=== PATIENT | male | born 1970 | race Caucasian/White ===

== ENCOUNTER 2016-10-06 10:53 | Inpatient (IN) | payer BC ==
[~2016-10-06] VITALS: Ht 172.7 cm; Wt 216.1 kg
[~2016-10-06 10:53] MED LIST changes: -ALBU18002 INH; -CRD200 PO; -IBUP-1050 PO; -LPR100 PO; -NAPR1TAB9 PO; -POTA10CA28 PO; -PRD75 PO; -SPRIN INH
[2016-10-06] MEDS ORDERED: DILTIAZEM BOLUS / DRIP IV STA ×2 (11:17→18:34)
--- NOTE | 2016-10-06 11:22 | EMERGENCY ROOM VISIT NOTE ---
History Report prepared by Harley: Shahab Laguna Under the Supervision of: Dr. Rosio Tran D.O. First contact with patient: 10:56 History of Present Illness The patient is a 46 year old male who presents to the Emergency Room with persistent irregular heart rhythm that was detected earlier today. The patient was scheduled to have a colonoscopy today. In pre-op they expressed concern that the patient appeared diaphoretic and short of breath, however the patient states that this is because the room was hot and he is a "big glen." On the special agent it was noted that the patient was in an irregular heart rhythm, and he was referred to the ED. The patient has not felt tachycardic or noticed any fluttering. He does not have history of cardiac dysrhythmia. The patient denies lightheadedness, dizziness, chest pain, recent cough or cold symptoms, or other complaints. The patient felt fine overnight when he was preparing for the procedure. The patient intermittently experiences water retention in his legs and takes a diuretic as needed. The patient was having the colonoscopy due to fluctuations in his bowel habits. He denies any history of diabetes, hypertension, heart disease, or thyroid disease. He had a negative echocardiogram many years ago. He does have a family history of heart disease. He did not have a cardiology consultation prior to scheduling his colonoscopy. He denies having any sick contacts, medication changes, or recent travel. The patient smoked his whole life but quit a few months ago. Source of History: patient Onset: earlier today Position: other (heart ) Quality: other (irregular rhythm) Timing: other (persistent) Associated Symptoms: No cough, No chest pain Review of Systems See HPI for pertinent positives & negatives. A total of 10 systems reviewed and were otherwise negative. Past Medical & Surgical Medical Problems: (1) Acute diverticulitis (2) Atrial fibrillation with RVR (3) Depression (4) GERD (gastroesophageal reflux disease) (5) Morbid obesity due to excess calories (6) ZORA (obstructive sleep apnea) Social History Problems: (1) Former smoker Family History Patient reports no known family medical history. Social History Smoking Status: Former Smoker Alcohol Use: occasionally Drug Use: none Current/Historical Medications Scheduled Budesonide/Formoterol Fumarate (Symbicort 160/4.5 Inhaler), 2 PUFFS INH BID Glucosamine-Chondroitin (Osteo Bi-Flex Regular Str), 1 TAB PO QAM Omeprazole (Prilosec), 20 MG PO QAM Tiotropium Hale (Spiriva Handihaler), 1 CAP INH QAM Scheduled PRN Albuterol Sulfate (Proair Respiclick), 2 PUFFS INH QID PRN for Shortness of Breath Furosemide (Lasix), 80 MG PO BID PRN for edema Naproxen (Aleve), 220 MG PO Q4 PRN for Headache Potassium Chloride (Micro-K Ext Rel), 20 MEQ PO BID PRN for TAKE WITH LASIX Allergies Coded Allergies: No Known Allergies (Unverified , 10/06/16) Physical Exam Vital Signs Date Time Temp Pulse Resp B/P (MAP) Pulse Ox O2 Delivery O2 Flow Rate FiO2 10/06/16 18:20 135 20 142/111 10/06/16 17:01 128 20 174/124 91 Nasal Cannula 2.0 10/06/16 15:52 129 20 168/102 95 Room Air 10/06/16 15:24 118 22 141/122 92 Room Air 10/06/16 14:26 118 20 181/130 91 Nasal Cannula 2.0 10/06/16 13:53 108 10/06/16 13:15 123 18 158/115 93 Nasal Cannula 2.0 10/06/16 12:09 121 18 168/113 93 Nasal Cannula 2.0 10/06/16 11:38 133 20 160/111 93 Nasal Cannula 2.0 10/06/16 11:07 134 10/06/16 11:04 89 Room Air 10/06/16 11:04 37.1 134 20 175/102 93 Nasal Cannula 2.0 10/06/16 11:00 93 Nasal Cannula 2.0 Physical Exam GENERAL: Obese, alert, well appearing, well nourished, no distress, non-toxic EYE EXAM: normal conjunctiva, PERRL and EOM's grossly intact OROPHARYNX: no exudate, no erythema, lips, buccal mucosa, and tongue normal and mucous membranes are mildly dry NECK: supple, no nuchal rigidity, no adenopathy, non-tender LUNGS: Clear to auscultation. Normal chest wall mechanics HEART: Tachycardic but regular rhythm, no murmurs, S1 normal and S2 normal ABDOMEN: abdomen soft, non-tender, normo-active bowel sounds, no masses, no rebound or guarding. BACK: Back is symmetrical on inspection and there is no deformity, no midline tenderness, no CVA tenderness. SKIN: no rashes and no bruising UPPER EXTREMITIES: upper extremities are grossly normal. LOWER EXTREMITIES: Chronic venous stasis changes bilaterally with 1+ edema bilaterally. NEURO EXAM: Normal sensorium, cranial nerves II-XII grossly intact, normal speech, no gross weakness of arms, no gross weakness of legs. No drift. Gross sensation intact. Medical Decision & Procedures ER Provider Diagnostic Interpretation: Radiology results have been interpreted by the radiologist and reviewed by me. CHEST ONE VIEW PORTABLE HISTORY: dysrhythmia, sob COMPARISON: Chest 03/02/2015. FINDINGS: Moderate cardiomegaly has progressed. Diffuse interstitial and vascular thickening has also increased. This consistent with pulmonary edema. Suspect trace bilateral pleural effusions. No pneumothorax. Increased density within the right medial lung base. IMPRESSION: 1. Progression of the moderate cardiomegaly and pulmonary edema. 2. Right medial lung base opacity. This could be due to the pulmonary edema or developing pneumonia. Recommend follow-up to ensure resolution. Electronically signed by: Johny Chisholm M.D. 10/06/2016 11:40 AM Dictated Date/Time: 10/06/2016 11:[address] ANGIOGRAM OF THE CHEST CLINICAL HISTORY: Atypical chest pain COMPARISON STUDY: Chest x-ray dated 10-21 TECHNIQUE: Following the IV administration of 117 mL of Optiray-320, CT angiogram of the thorax was performed from the thoracic inlet to the lung bases utilizing the pulmonary embolus protocol. Images are reviewed in the axial, sagittal, and coronal planes. IV contrast was administered without complication. MIP imaging was performed. CT DOSE: 912.53 mGy.cm FINDINGS: There are mildly enlarged right paratracheal lymph nodes measuring up to 16 mm in diameter. There is a mildly enlarged AP window lymph node. There is no pathologic axillary lymphadenopathy. Hilar lymph nodes are the upper limits of normal in size. There was no evidence of thoracic aortic dilatation. Pulmonary arterial opacification is somewhat limited in part due to the patient's large body habitus. No central emboli are visualized. No pleural effusions are visualized. There is suspected mild septal edema. There is a small focal airspace opacity within the right lower lobe. This is likely either atelectatic or inflammatory. Radiographic follow-up is recommended. The heart is enlarged IMPRESSION: 1. No CT evidence of acute pulmonary embolism 2. Cardiomegaly and mild septal edema 3. Small focal right lower lobe airspace opacity, likely on an atelectatic or inflammatory. Radiographic follow-up is recommended 4. Mild mediastinal adenopathy Electronically signed by: Jordy Aguilar M.D. 10/06/2016 2:38 PM Dictated Date/Time: 10/06/2016 2:33 PM Laboratory Results Test 10/06/16 11:45 Immature Granulocyte % (Auto) 0.1 % White Blood Count 8.02 K/uL (4.8-10.8) Red Blood Count 5.22 M/uL (4.7-6.1) Hemoglobin 14.2 g/dL (14.0-18.0) Hematocrit 46.2 % (42-52) Mean Corpuscular Volume 88.5 fL (80-100) Mean Corpuscular Hemoglobin 27.2 pg (25-34) Mean Corpuscular Hemoglobin Concent 30.7 g/dl (32-36) Platelet Count 282 K/uL (130-400) Mean Platelet Volume 9.8 fL (7.4-10.4) Neutrophils (%) (Auto) 72.8 % Lymphocytes (%) (Auto) 17.0 % Monocytes (%) (Auto) 9.5 % Eosinophils (%) (Auto) 0.4 % Basophils (%) (Auto) 0.2 % Neutrophils # (Auto) 5.84 K/uL (1.4-6.5) Lymphocytes # (Auto) 1.36 K/uL (1.2-3.4) Monocytes # (Auto) 0.76 K/uL (0.11-0.59) Eosinophils # (Auto) 0.03 K/uL (0-0.5) Basophils # (Auto) 0.02 K/uL (0-0.2) Immature Granulocyte # (Auto) 0.01 K/uL (0.00-0.02) Prothrombin Time 12.3 SECONDS (9.0-12.0) Prothromb Time International Ratio 1.1 (0.9-1.1) D-Dimer 970 ug/L FEU (0-500) Total Bilirubin 0.5 mg/dl (0.2-1) Aspartate Amino Transf (AST/SGOT) 19 U/L (15-37) Alanine Aminotransferase (ALT/SGPT) 25 U/L (12-78) Alkaline Phosphatase 67 U/L (45-117) Pro-B-Type Natriuretic Peptide 743 pg/ml (0-450) Total Protein 7.9 gm/dl (6.4-8.2) Albumin 3.1 gm/dl (3.4-5.0) Globulin 4.8 gm/dl (2.5-4.0) Albumin/Globulin Ratio 0.6 (0.9-2) Thyroid Stimulating Hormone (TSH) 1.710 uIu/ml (0.300-4.500) Laboratory results per my review. Medications Administered Medications (Trade) Dose Ordered Sig/Katty Route Start Time Stop Time Status Last Admin Dose Admin Diltiazem HCl (Cardizem Bolus / Drip) 1 ea NOW STAT IV 10/06/16 11:17 10/06/16 12:46 DC 10/06/16 12:13 1 EA Diltiazem HCl (Cardizem Inj) 10 mg TODAY@1130 IV 10/06/16 11:30 10/06/16 12:46 DC 10/06/16 11:36 10 MG Diltiazem HCl 125 mg/Dextrose 125 ml @ 5 mls/hr Q24H PRN IV 10/06/16 11:30 10/06/16 12:46 DC 10/06/16 12:21 5 MLS/HR Sodium Chloride 500 ml @ 999 mls/hr Q31M STAT IV 10/06/16 15:44 10/06/16 16:14 DC 10/06/16 15:50 999 MLS/HR Heparin Sodium/ Dextrose 1 ea NOW STAT N/A 10/06/16 17:18 10/06/16 17:19 DC 10/06/16 18:13 1 EA Heparin Sodium/ Dextrose (Heparin 25,000 Unit/500ml D5W) 25,000 unit STK-MED ONCE .ROUTE 10/06/16 18:09 10/06/16 18:10 DC 10/06/16 18:15 25,000 UNIT ECG Indication: tachycardia Rate (beats per minute): 134 Rhythm: sinus tachycardia Findings: RBBB (appearance of), no acute ischemic change, prolonged QT, other ( normal axis, normal QRS) Change: Repeat EKG: sinus rhythm at 115, normal axis, normal QRS, normal QTC. Third EKG: Atrial fibrillation at a rate of 124, normal axis, appearance of incomplete RBBB, normal QRS. ED Course 1102: The patient was evaluated in room C4. A complete history and physical exam was performed. 1117: Cardizem Bolus / Drip 1 ea IV. 1130: Cardizem 10 mg IV. 1250: The patient still feels okay. I updated him and told him about the CT. 1200: The patient's heart rate is slower. He remains asymptomatic. 1510: Updated the patient. 1544: NSS 500 ml @ 999 mls/hr. 1640: The patient is still tachycardic but remains asymptomatic. Third EKG is being ordered. 1714: Discussed the case with Dr. Tyson, [facility] Hospitalist. The patient will be evaluated. 1718: Heparin Sodium / Dextrose 1 ea IV. Medical Decision Differential diagnosis: Etiologies such as premature contractions, electrolyte abnormality, cardiac dysrhythmia, thyroid dysfunction, pulmonary embolism, infection, gastrointestinal, as well as others were entertained. Blood pressure screening: Patient was found to have an elevated blood pressure and was referred to their primary doctor for recheck and further treatment. Medication Reconciliation: I attest that I have personally reviewed the patient' s current medication list. Patient's asymptomatic and tachycardia found incidentally the patient being prepared for colonoscopy this been scheduled as an outpatient. Patient brought to emergency room for evaluation. Initial telemetry rhythm appeared A flutter and Cardizem started, however en route close review of patient's twelve-lead EKG appeared to be sinus tachycardia. Patient given small amounts of IV fluids , this patient did not appear severely dehydrated and has had issues with volume overload and swelling in the past per his report. Patient with multiple repeat evaluations here and frequent rechecks. Tachycardia did not improve with IV hydration, patient not have any fevers, and denied any pain or symptoms to otherwise explain the tachycardia. Repeat EKGs were also done. Third EKG that appeared more consistent with atrial fibrillation and Cardizem restarted, patient started on heparin drip pending additional evaluation by medicine and cardiology. Case discussed with hospitalist for admission. No evidence of PE, dissection, or occult infection. No evidence of electrolyte abnormalities or renal failure, no evidence of acute thyroid dysfunction or thyroid storm. Patient remained asymptomatic at time of admission but was aware of all results and need for additional evaluation. Consults Time Called: 1700 Consulting Physician[facility] Returned Call: 1714 The patient will be evaluated. Impression Primary Impression: Atrial fibrillation Additional Impressions: Morbid obesity due to excess calories Cardiac arrhythmia Critical Care I have personally spent 45 minutes of critical care time in the direct management of this patient. This includes bedside care, interpretation of diagnostic studies, and testing, discussion with consultants, patient, and family members, and other required patient management activities. This 45 minutes is in excess of all separately billable procedures. Scribe Attestation The scribe's documentation has been prepared under my direction and personally reviewed by me in its entirety. I confirm that the note above accurately reflects all work, treatment, procedures, and medical decision making performed by me. Departure Information Dispostion Being Evaluated By Hospitalist Referrals Adam Crowder M.D.([facility]) (PCP) Problem Qualifiers Primary Impression: Atrial fibrillation Atrial fibrillation type: persistent Qualified Codes: I48.1 - Persistent atrial fibrillation Additional Impressions: Cardiac arrhythmia Arrhythmia type: atrial fibrillation Atrial fibrillation type: persistent Qualified Codes: I48.1 - Persistent atrial fibrillation
[2016-10-06] MEDS ORDERED: DILTIAZEM HCL 5 MG/ML 5 ML VIAL IV SCH (11:30)
[2016-10-06] MEDS ORDERED: DILTIAZEM HCL INJ 125 MG in DEXTROSE 5% 100ML IV PRN (11:30)
--- NOTE | 2016-10-06 11:42 | DIAGNOSTIC IMAGING REPORT ---
CHEST ONE VIEW PORTABLE HISTORY: dysrhythmia, sob COMPARISON: Chest 03/02/2015. FINDINGS: Moderate cardiomegaly has progressed. Diffuse interstitial and vascular thickening has also increased. This consistent with pulmonary edema. Suspect trace bilateral pleural effusions. No pneumothorax. Increased density within the right medial lung base. IMPRESSION: 1. Progression of the moderate cardiomegaly and pulmonary edema. 2. Right medial lung base opacity. This could be due to the pulmonary edema or developing pneumonia. Recommend follow-up to ensure resolution. Electronically signed by: Johny Chisholm M.D. 10/06/2016 11:40 AM Dictated Date/Time: 10/06/2016 11:39 AM
[2016-10-06 12:01] LABS: BASO % 0.2 %; BASO ABS # 0.02 K/uL (0-0.2); COMPLETE YES; EOS % 0.4 %; HEMATOCRIT 46.2 % (42-52); IG% 0.1 %; LYMPH ABS # 1.36 K/uL (1.2-3.4); MEAN CELL VOLUME 88.5 fL (80-100); MEAN CORPUSCULAR HEMOGLOBIN 27.2 pg (25-34); MEAN CORPUSCULAR HGB CONC 30.7 g/dl (32-36); MEAN PLATELET VOLUME 9.8 fL (7.4-10.4); MONO % 9.5 %; NEUT % 72.8 %; PLATELET COUNT 282 K/uL (130-400); RED BLOOD COUNT 5.22 M/uL (4.7-6.1); WHITE BLOOD COUNT 8.02 K/uL (4.8-10.8)
[2016-10-06] MEDS ORDERED: ALBU18002 INH (12:02)
[2016-10-06] MEDS ORDERED: POTA10CA28 PO (12:02)
[2016-10-06] MEDS ORDERED: SPRIN INH (12:02)
[2016-10-06] MEDS ORDERED: IBUP-1050 PO (12:03)
[2016-10-06] MEDS ORDERED: NAPR1TAB9 PO (12:03)
[2016-10-06 12:15] LABS: INR 1.1 (0.9-1.1); PROTHROMBIN TIME (PATIENT) 12.3 SECONDS (9.0-12.0)
[2016-10-06 12:19] LABS: CALCIUM 8.4 mg/dl (8.5-10.1); CREATININE 0.75 mg/dl (0.60-1.40); POTASSIUM 3.9 mmol/L (3.5-5.1)
[2016-10-06 12:29] LABS: ALB/GLOB RATIO 0.6 (0.9-2); THYROID STIMULATING HORMONE 1.71 uIu/ml (0.300-4.500)
[2016-10-06] MEDS ORDERED: OPTIRAY 320 IV PRN (13:00)
--- NOTE | 2016-10-06 14:40 | DIAGNOSTIC IMAGING REPORT ---
CT ANGIOGRAM OF THE CHEST CLINICAL HISTORY: Atypical chest pain COMPARISON STUDY: Chest x-ray dated 10-21 TECHNIQUE: Following the IV administration of 117 mL of Optiray-320, CT angiogram of the thorax was performed from the thoracic inlet to the lung bases utilizing the pulmonary embolus protocol. Images are reviewed in the axial, sagittal, and coronal planes. IV contrast was administered without complication. MIP imaging was performed. CT DOSE: 912.53 mGy.cm FINDINGS: There are mildly enlarged right paratracheal lymph nodes measuring up to 16 mm in diameter. There is a mildly enlarged AP window lymph node. There is no pathologic axillary lymphadenopathy. Hilar lymph nodes are the upper limits of normal in size. There was no evidence of thoracic aortic dilatation. Pulmonary arterial opacification is somewhat limited in part due to the patient's large body habitus. No central emboli are visualized. No pleural effusions are visualized. There is suspected mild septal edema. There is a small focal airspace opacity within the right lower lobe. This is likely either atelectatic or inflammatory. Radiographic follow-up is recommended. The heart is enlarged IMPRESSION: 1. No CT evidence of acute pulmonary embolism 2. Cardiomegaly and mild septal edema 3. Small focal right lower lobe airspace opacity, likely on an atelectatic or inflammatory. Radiographic follow-up is recommended 4. Mild mediastinal adenopathy Electronically signed by: Jordy Aguilar M.D. 10/06/2016 2:38 PM Dictated Date/Time: 10/06/2016 2:33 PM
[2016-10-06] MEDS ORDERED: SODIUM CHLORIDE 0.9% 500ML 500 ML IV STA (15:44)
[2016-10-06] MEDS ORDERED: HEPARIN 25000 UNIT/500 ML D5W ONE (18:09)
[2016-10-06] MEDS ORDERED: NITROGLYCERIN 0.4 MG SL PER TAB CHARGE SL PRN (18:30)
[2016-10-06] MEDS ORDERED: ONDANSETRON INJ 2 MG/ML 2 ML VIAL IV PRN (18:30)
[2016-10-06] MEDS ORDERED: ACETAMINOPHEN 325 MG TAB PO PRN (18:30)
[2016-10-06] MEDS ORDERED: MoRPHine SULFATE 2 MG/ML CARP IV PRN (18:30)
[2016-10-06 18:37] LABS: PARTIAL THROMBOPLASTIN RATIO 1.1
[2016-10-06] MEDS ORDERED: ASPIRIN 81 MG CHEW PO STA ×2 (18:37→21:32)
[2016-10-06] MEDS ORDERED: ALBUTEROL HFA INHALER 8.5 GM INH PRN (19:15)
--- NOTE | 2016-10-06 19:19 | History and Physical ---
History & Physical Date & Time of Service: Oct 06, 2016 at 18:59 Chief Complaint: Primary Care Physician: Adam Crowder M.D.(FRED) History of Present Illness Source: patient, clinic records, hospital records 46 yo obese male presents today after going for a colonoscopy and being found in new onset atrial fibrillation with RVR. He reports no symptoms at all including no chest pain, lightheadedness, or shortness of breath. He states he got a little winded undressing and laying up on the operating table but that was normal for him. He reports drinking 2L of caffeinated soda daily and states that he hasn't had any caffeine today because of the GI prep requirements , which gave him a headache this morning. He only uses alcohol occasionally. He is a prior smoker for 32 years but quit one year ago successfully. He otherwise reports a history of chronic diarrhea (which he reports is twice daily semi-formed stool) which has been ongoing for the past 6 weeks. He has had a trial of cipro and probiotics and was going for the colonoscopy for further part of that workup. In the ER, CTA was negative for PE, however imaging showed some fluid overload. Volume status is difficult to gauge in him because of his size, and he also has some chronic lymphedema in his abdomen and legs. He takes PRN Lasix which equates to 3 times monthly but did feel he needed it yesterday because his legs appeared more swollen. ROS is otherwise negative. Past Medical/Surgical History Medical Problems: (1) Acute diverticulitis Status: Resolved (2) Depression Status: Chronic (3) GERD (gastroesophageal reflux disease) Status: Chronic (4) Morbid obesity due to excess calories Status: Chronic (5) ZORA (obstructive sleep apnea) Status: Chronic Social History Problems: (1) Former smoker Status: Chronic Family History Patient reports no known family medical history. Social History Smoking Status: Former Smoker Smokeless Tobacco Use: No Alcohol Use: occasionally Drug Use: none Marital Status: single Housing status: lives alone Immunizations History of Influenza Vaccine: Yes Influenza Vaccine Date: Feb 25, 2015 History of Tetanus Vaccine?: Yes Tetanus Immunization Date: Jan 28, 2009 History of Pneumococcal: No History of Hepatitis B Vaccine: No Multi-Drug Resistant Organisms History of MDRO: No Allergies Coded Allergies: No Known Allergies (Unverified , 10/06/16) Home Medications Scheduled Budesonide/Formoterol Fumarate (Symbicort 160/4.5 Inhaler), 2 PUFFS INH BID Glucosamine-Chondroitin (Osteo Bi-Flex Regular Str), 1 TAB PO QAM Omeprazole (Prilosec), 20 MG PO QAM Tiotropium [place] (Spiriva Handihaler), 1 CAP INH QAM Scheduled PRN Albuterol Sulfate (Proair Respiclick), 2 PUFFS INH QID PRN for Shortness of Breath Furosemide (Lasix), 80 MG PO BID PRN for edema Naproxen (Aleve), 220 MG PO Q4 PRN for Headache Potassium Chloride (Micro-K Ext Rel), 20 MEQ PO BID PRN for TAKE WITH LASIX Review of Systems Ten systems were reviewed and negative except as indicated in HPI. Physical Exam Vital Signs Date Time Temp Pulse Resp B/P (MAP) Pulse Ox O2 Delivery O2 Flow Rate FiO2 10/06/16 18:48 138 20 160/111 91 Room Air 10/06/16 18:20 135 20 142/111 10/06/16 17:01 128 20 174/124 91 Nasal Cannula 2.0 10/06/16 15:52 129 20 168/102 95 Room Air 10/06/16 15:24 118 22 141/122 92 Room Air 10/06/16 14:26 118 20 181/130 91 Nasal Cannula 2.0 10/06/16 13:53 108 10/06/16 13:15 123 18 158/115 93 Nasal Cannula 2.0 10/06/16 12:09 121 18 168/113 93 Nasal Cannula 2.0 10/06/16 11:38 133 20 160/111 93 Nasal Cannula 2.0 10/06/16 11:07 134 10/06/16 11:04 89 Room Air 10/06/16 11:04 37.1 134 20 175/102 93 Nasal Cannula 2.0 10/06/16 11:00 93 Nasal Cannula 2.0 GEN:morbidly obese, in no acute distress, alert and appropriate HEENT: NC/AT, PERRL, normal sclerae/comjunctivae, MMM, pharynx is non acute CARDIO: tachy rate that sounds very regular, S1/2 heard without m/g/r LUNGS: CTA bilaterally, no crackles, rales or wheezes, good diaphragmatic excursion ABD: soft, non-tender, non-distended, no rebound or guarding, +BS, dependent edema in skin folds EXTREMITY: RP and DP palpable 2+ bilat, chronic venous stasis changes, edema present that is not pitting, extremities are warm and well-perfused NEURO: CN 2-12 intact, sensation intact throughout, no gross focal deficits. MUSC: 5/5 strength throughout, no focal deficits SKIN: warm and dry with chronic sking changes in edematous areas including abdomen and legs. Diagnostics Laboratory Results Results Past 24 Hours Test 10/06/16 11:45 10/06/16 18:28 Range/Units White Blood Count 8.02 4.8-10.8 K/uL Red Blood Count 5.22 4.7-6.1 M/uL Hemoglobin 14.2 14.0-18.0 g/dL Hematocrit 46.2 42-52 % Mean Corpuscular Volume 88.5 80-100 fL Mean Corpuscular Hemoglobin 27.2 25-34 pg Mean Corpuscular Hemoglobin Concent 30.7 32-36 g/dl Platelet Count 282 130-400 K/uL Mean Platelet Volume 9.8 7.4-10.4 fL Neutrophils (%) (Auto) 72.8 % Lymphocytes (%) (Auto) 17.0 % Monocytes (%) (Auto) 9.5 % Eosinophils (%) (Auto) 0.4 % Basophils (%) (Auto) 0.2 % Neutrophils # (Auto) 5.84 1.4-6.5 K/uL Lymphocytes # (Auto) 1.36 1.2-3.4 K/uL Monocytes # (Auto) 0.76 0.11-0.59 K/uL Eosinophils # (Auto) 0.03 0-0.5 K/uL Basophils # (Auto) 0.02 0-0.2 K/uL RDW Standard Deviation 47.9 36.4-46.3 fL RDW Coefficient of Variation 14.8 11.5-14.5 % Immature Granulocyte % (Auto) 0.1 % Immature Granulocyte # (Auto) 0.01 0.00-0.02 K/uL Prothrombin Time 12.3 9.0-12.0 SECONDS Prothromb Time International Ratio 1.1 0.9-1.1 Activated Partial Thromboplast Time 27.7 21.0-31.0 SECONDS Partial Thromboplastin Ratio 1.1 D-Dimer 970 0-500 ug/L FEU Sodium Level 139 136-145 mmol/L Potassium Level 3.9 3.5-5.1 mmol/L Chloride Level 105 98-107 mmol/L Carbon Dioxide Level 30 21-32 mmol/L Anion Gap 4.0 3-11 mmol/L Blood Urea Nitrogen 8 7-18 mg/dl Creatinine 0.75 0.60-1.40 mg/dl Est Creatinine Clear Calc Drug Dose 225.0 ml/min Estimated GFR () 126.6 Estimated GFR (Non- 109.2 BUN/Creatinine Ratio 11.0 10-20 Random Glucose 97 70-99 mg/dl Calcium Level 8.4 8.5-10.1 mg/dl Total Bilirubin 0.5 0.2-1 mg/dl Aspartate Amino Transf (AST/SGOT) 19 15-37 U/L Alanine Aminotransferase (ALT/SGPT) 25 12-78 U/L Alkaline Phosphatase 67 45-117 U/L Troponin I 0.017 0-0.045 ng/ml Pro-B-Type Natriuretic Peptide 743 0-450 pg/ml Total Protein 7.9 6.4-8.2 gm/dl Albumin 3.1 3.4-5.0 gm/dl Globulin 4.8 2.5-4.0 gm/dl Albumin/Globulin Ratio 0.6 0.9-2 Thyroid Stimulating Hormone (TSH) 1.710 0.300-4.500 uIu/ml Creatine Kinase MB Ratio 0-3.0 Diagnostic Radiology CHEST ONE VIEW PORTABLE HISTORY: dysrhythmia, sob COMPARISON: Chest 03/02/2015. FINDINGS: Moderate cardiomegaly has progressed. Diffuse interstitial and vascular thickening has also increased. This consistent with pulmonary edema. Suspect trace bilateral pleural effusions. No pneumothorax. Increased density within the right medial lung base. IMPRESSION: 1. Progression of the moderate cardiomegaly and pulmonary edema. 2. Right medial lung base opacity. This could be due to the pulmonary edema or developing pneumonia. Recommend follow-up to ensure resolution. CT ANGIOGRAM OF THE CHEST CLINICAL HISTORY: Atypical chest pain COMPARISON STUDY: Chest x-ray dated 10-21 TECHNIQUE: Following the IV administration of 117 mL of Optiray-320, CT angiogram of the thorax was performed from the thoracic inlet to the lung bases utilizing the pulmonary embolus protocol. Images are reviewed in the axial, sagittal, and coronal planes. IV contrast was administered without complication. MIP imaging was performed. CT DOSE: 912.53 mGy.cm FINDINGS: There are mildly enlarged right paratracheal lymph nodes measuring up to 16 mm in diameter. There is a mildly enlarged AP window lymph node. There is no pathologic axillary lymphadenopathy. Hilar lymph nodes are the upper limits of normal in size. There was no evidence of thoracic aortic dilatation. Pulmonary arterial opacification is somewhat limited in part due to the patient's large body habitus. No central emboli are visualized. No pleural effusions are visualized. There is suspected mild septal edema. There is a small focal airspace opacity within the right lower lobe. This is likely either atelectatic or inflammatory. Radiographic follow-up is recommended. The heart is enlarged IMPRESSION: 1. No CT evidence of acute pulmonary embolism 2. Cardiomegaly and mild septal edema 3. Small focal right lower lobe airspace opacity, likely on an atelectatic or inflammatory. Radiographic follow-up is recommended 4. Mild mediastinal adenopathy EKG aflutter with variable AV block HR 115 Impression Assessment and Plan 46 yo obese man presents with new onset atrial fibrillation with RVR while preparing for colonoscopy today 1. Atrial fib with RVR-new onset with likely etiologies including excessive caffeine intake, obesity, stress from an invasive procedure planned today and possible CHF or a combination of all three. Again, volume status is difficult to gauge but it is likely he has diastolic dysfunction with his size which may be precipitating vol overload. Prior TTE in 2013 was suboptimal because of his size despite the use of contrast. TSH normal and no PE present. Pt has ZORA and reports compliance with CPAP mask. Initial ischemic workup is negative. Will cont to trend serial enzymes overnight. Give ASA/statin for coverage in the event ACS is causing this although I don't suspect it. Will cont cardizem drip for rate control and heparin drip. With his increased swelling in LEs and findings on imaging over fluid overload, I will give him some Lasix now. Will place borja for accurate I/Os. Monitor on telemetry overnight. 2. Morbid Obesity 3. ZORA- compliant with mask/CPAP 4. COPD-stable no active wheezing, cont home inhalers. 5. Chronic lymphedema. -Lasix as above. DVT proph-heparin drip FULL CODE [facility]po[facility] Risk Assessment Done? Y/N: Yes Risk Level: Moderate Given or contraindicated: Other Anticoagulation
[2016-10-06 19:34] LABS: CKMB/CK RATIO 1.6 (0-3.0)
[2016-10-06 19:50] VITALS: BP 155/115; PULSE 136; TEMP 37; O2SAT 88; Ht 172.7 cm; Wt 216.1 kg
[2016-10-06] MEDS ORDERED: ATORVASTATIN 40 MG TAB PO ONE (20:00)
[2016-10-06] MEDS ORDERED: POTASSIUM CHLORIDE 20 MEQ TABCR PO ONE (20:00)
[2016-10-06] MEDS ORDERED: FUROSEMIDE INJ 40 MG in SYRINGE 0 ML IV ONE (20:00)
[2016-10-06] MEDS: BUDESONIDE/FORMOTEROL FUMARATE 160/4.5 60 PUFFS/INHALER INH SCH (21:21)
[2016-10-06 23:41] VITALS: BP_SYST 149; BP_SYST 154; BP_DIAS 101; BP_DIAS 103; PULSE 114; TEMP 36.9; O2SAT 90
[2016-10-07 00:53] LABS: PARTIAL THROMBOPLASTIN RATIO 1.2
[2016-10-07] MEDS ORDERED: HEPARIN IV BOLUS 10,000 UNIT in SYRINGE 0 ML IV STA (01:04)
[2016-10-07 01:06] LABS: CKMB/CK RATIO 1.6 (0-3.0)
[2016-10-07] MEDS: HEPARIN 25,000 UNIT/500ML D5W 500 ML IV PRN ×3 (01:23→12:44)
[2016-10-07] MEDS: DILTIAZEM HCL INJ 125 MG in DEXTROSE 5% 100ML IV PRN ×2 (02:25→12:43)
[2016-10-07 03:22] VITALS: BP 144/94; PULSE 100; TEMP 37.1; O2SAT 96
[2016-10-07 04:47] LABS: HEMATOCRIT 44.1 % (42-52); MEAN CELL VOLUME 87.7 fL (80-100); MEAN CORPUSCULAR HEMOGLOBIN 28.2 pg (25-34); MEAN CORPUSCULAR HGB CONC 32.2 g/dl (32-36); MEAN PLATELET VOLUME 10.2 fL (7.4-10.4); PLATELET COUNT 269 K/uL (130-400); RED BLOOD COUNT 5.03 M/uL (4.7-6.1); WHITE BLOOD COUNT 8.29 K/uL (4.8-10.8)
[2016-10-07 05:00] LABS: PARTIAL THROMBOPLASTIN RATIO 2.3
[2016-10-07 05:03] LABS: BUN/CREATININE RATIO 9.6 (10-20); CALCIUM 8.4 mg/dl (8.5-10.1); CREATININE 0.88 mg/dl (0.60-1.40); POTASSIUM 3.7 mmol/L (3.5-5.1)
[2016-10-07 05:06] LABS: CHOLESTEROL/HDL RATIO 4.8
[2016-10-07 08:00] VITALS: O2SAT 90
[2016-10-07] MEDS: PANTOprazole SOD 40 MG TAB PO SCH (08:19)
[2016-10-07] MEDS: BUDESONIDE/FORMOTEROL FUMARATE 160/4.5 60 PUFFS/INHALER INH SCH ×2 (08:19→21:04)
[2016-10-07] MEDS: TIOTROPIUM BROMIDE 5 PUFF/90 MCG INH INH SCH (08:20)
[2016-10-07 08:42] VITALS: BP 146/96; PULSE 106; TEMP 36.1; O2SAT 96
[2016-10-07] MEDS ORDERED: NON-FORMULARY MEDICATION (Glucosamine-Chondroitin (Osteo Bi-Flex Regular Str) 1 TAB) PO SCH (09:00)
[2016-10-07] MEDS ORDERED: ATORVASTATIN 40 MG TAB PO SCH (09:00)
[2016-10-07] MEDS ORDERED: PERFLUTREN LIPID MICROSPHERE (DEFINITY) IV ONE (09:01)
[2016-10-07 12:00] VITALS: BP 144/82; PULSE 114; TEMP 36.7; O2SAT 90
--- NOTE | 2016-10-07 12:20 | Progress Note ---
Internal Med Progress Note Date of Service: Oct 07, 2016. Provider Documentation: SUBJECTIVE: Patient is doing well and eager to be discharged. Denies any palpitations, chest pain, leg swelling, fever, chills, nausea, vomiting. No c/o cough. Tele- Atrial fibrillation with HR- 90-110s OBJECTIVE: Vital Signs-as noted below Exam: General-AAOX3, Morbidly obese+, no distress Neck-Short neck Lungs-AEBE, no wheezing, rales Heart-Irregularly irregular Extremities-No edema bilaterally Lab data as noted below. Diagnostic Radiology CHEST ONE VIEW PORTABLE HISTORY: dysrhythmia, sob COMPARISON: Chest 03/02/2015. FINDINGS: Moderate cardiomegaly has progressed. Diffuse interstitial and vascular thickening has also increased. This consistent with pulmonary edema. Suspect trace bilateral pleural effusions. No pneumothorax. Increased density within the right medial lung base. IMPRESSION: 1. Progression of the moderate cardiomegaly and pulmonary edema. 2. Right medial lung base opacity. This could be due to the pulmonary edema or developing pneumonia. Recommend follow-up to ensure resolution. CT ANGIOGRAM OF THE CHEST CLINICAL HISTORY: Atypical chest pain COMPARISON STUDY: Chest x-ray dated 10-21 TECHNIQUE: Following the IV administration of 117 mL of Optiray-320, CT angiogram of the thorax was performed from the thoracic inlet to the lung bases utilizing the pulmonary embolus protocol. Images are reviewed in the axial, sagittal, and coronal planes. IV contrast was administered without complication. MIP imaging was performed. CT DOSE: 912.53 mGy.cm FINDINGS: There are mildly enlarged right paratracheal lymph nodes measuring up to 16 mm in diameter. There is a mildly enlarged AP window lymph node. There is no pathologic axillary lymphadenopathy. Hilar lymph nodes are the upper limits of normal in size. There was no evidence of thoracic aortic dilatation. Pulmonary arterial opacification is somewhat limited in part due to the patient's large body habitus. No central emboli are visualized. No pleural effusions are visualized. There is suspected mild septal edema. There is a small focal airspace opacity within the right lower lobe. This is likely either atelectatic or inflammatory. Radiographic follow-up is recommended. The heart is enlarged IMPRESSION: 1. No CT evidence of acute pulmonary embolism 2. Cardiomegaly and mild septal edema 3. Small focal right lower lobe airspace opacity, likely on an atelectatic or inflammatory. Radiographic follow-up is recommended 4. Mild mediastinal adenopathy EKG aflutter with variable AV block HR 115 ASSESSMENT & PLAN: Assessment and Plan : 46 yo obese man presents with new onset atrial fibrillation with RVR while preparing for colonoscopy. ATRIAL FIBRILLATION WITH RVR (New onset) Patient was for colonoscopy when he was noted to be in Atrial Fibrillation with RVR. -Risk factors: Probable HTN (not on any medications), Mobidly obese -On IV Cardizem drip at 15 mg/hour. Not on any oral medications -Anticoagulation- IV heparin drip. CHADS VASC- 1 -Work up- Trop x 3 - neg, TSH- normal, CT scan chest- No PE, some pulm edema, right medial lung opacity- atelectasis vs pneumonia., but clinically no signs of pneumonia. -Cardiology consulted. Echo - pending VOLUME OVERLOAD Likely secondary to A fib with RVR -Received a dose of IV Lasix 40 mg on admission -Work up- BNP 700s, CXR/CT scan- mild pulm edema, Echo- pending -Will re assess on a daily basis for lasix need. COPD Stable -No signs of exacerbation ZORA- -Compliant with Mask/CPAP CHRONIC LYMPHEDEMA Uses lasix on and off. -No indication for it DVT PROPHYLAXIS - Heparin drip FULL CODE DISPOSITION Continue with tele monitoring Eager to be discharged. Convinced him to stay tonight Vital Signs: Date Time Temp Pulse Resp B/P (MAP) Pulse Ox O2 Delivery O2 Flow Rate FiO2 10/07/16 08:42 36.1 106 24 146/96 (113) 96 CPAP 10/07/16 04:00 Room Air 10/07/16 03:22 37.1 100 24 144/94 (111) 96 CPAP 10/07/16 00:00 Room Air 10/06/16 23:41 36.9 114 24 149/103 (118) 90 Room Air 154/101 (118) 10/06/16 20:00 Room Air 10/06/16 19:50 37.0 136 24 155/115 88 Room Air 10/06/16 18:48 138 20 160/111 91 Room Air 10/06/16 18:20 135 20 142/111 10/06/16 17:01 128 20 174/124 91 Nasal Cannula 2.0 10/06/16 15:52 129 20 168/102 95 Room Air 10/06/16 15:24 118 22 141/122 92 Room Air 10/06/16 14:26 118 20 181/130 91 Nasal Cannula 2.0 10/06/16 13:53 108 10/06/16 13:15 123 18 158/115 93 Nasal Cannula 2.0 Lab Results: Results Past 24 Hours Test 10/06/16 19:02 10/07/16 00:35 10/07/16 04:35 10/07/16 07:25 Range/Units Total Creatine Kinase 196 220 39-308 U/L Creatine Kinase MB 3.2 3.6 0.5-3.6 ng/ml Creatine Kinase MB Ratio 1.6 1.6 0-3.0 Troponin I 0.017 0.022 0-0.045 ng/ml Activated Partial Thromboplast Time 30.8 60.0 52.5 21.0-31.0 SECONDS Partial Thromboplastin Ratio 1.2 2.3 2.0 White Blood Count 8.29 4.8-10.8 K/uL Red Blood Count 5.03 4.7-6.1 M/uL Hemoglobin 14.2 14.0-18.0 g/dL Hematocrit 44.1 42-52 % Mean Corpuscular Volume 87.7 80-100 fL Mean Corpuscular Hemoglobin 28.2 25-34 pg Mean Corpuscular Hemoglobin Concent 32.2 32-36 g/dl RDW Standard Deviation 47.4 36.4-46.3 fL RDW Coefficient of Variation 14.8 11.5-14.5 % Platelet Count 269 130-400 K/uL Mean Platelet Volume 10.2 7.4-10.4 fL Sodium Level 140 136-145 mmol/L Potassium Level 3.7 3.5-5.1 mmol/L Chloride Level 104 98-107 mmol/L Carbon Dioxide Level 28 21-32 mmol/L Anion Gap 8.0 3-11 mmol/L Blood Urea Nitrogen 8 7-18 mg/dl Creatinine 0.88 0.60-1.40 mg/dl Est Creatinine Clear Calc Drug Dose 187.2 ml/min Estimated GFR () 118.6 Estimated GFR (Non- 102.3 BUN/Creatinine Ratio 9.6 10-20 Random Glucose 123 70-99 mg/dl Calcium Level 8.4 8.5-10.1 mg/dl Triglycerides Level 109 0-150 mg/dl Cholesterol Level 152 0-200 mg/dl HDL Cholesterol 32 mg/dl LDL Cholesterol, Calculated 98 mg/dl VLDL Cholesterol, Calculated 22 mg/dl Cholesterol/HDL Ratio 4.8
--- NOTE | 2016-10-07 14:11 | ECHOCARDIOGRAM REPORT ---
*NOTICE TO RECEIVING LIBERTARIAN AGENCY This information is strictly Confidential and protected under [place] law. [place] law prohibits you from making any further disclosure of this information unless further disclosure is expressly permitted by the written consent of the person to whom it pertains or is authorized by law. A general authorization for the release of medical or other information is not sufficient for this purpose. Hospital accepts no responsibility if the information is made available to any other person, INCLUDING THE PATIENT. Interpretation Summary * Name: GENO VEGA JR Study Date: 10/07/2016 08:33 AM BP: 144/94 mmHg * Patient Location: C.2T\S\E218\S\1 HR: 106 * : 1970 (M/d/yyyy) Gender: Male Height: 68 in * Age: 46 yrs Ethnicity: CA Weight: 493 lb * Ordering Physician: Keiko Tyson * Referring Physician: No Doctor, Assigned * Performed By: Ady Cuellar RDCS * * Reason For Study: A-FIB * BSA: 3.0 m2 * The study was technically difficult. * The study was technically limited. * -- Conclusions -- * Poor acoustic windows noted. * The left ventricular systolic function is grossly normal on limited visualization. * Regional wall motion cannot be assessed. * The right ventricle is not well visualized. * The right ventricular systolic function is grossly normal on limited visualization. * There is a small loculated anterior pericardial effusion. * There are no echocardiographic indications of cardiac tamponade. * The valves were not well visualized, however no significant stenosis or regurgitation was detected on Doppler evaluation. Procedure Details * A complete two-dimensional transthoracic echocardiogram was performed (2D, M-mode, Doppler and color flow Doppler). * The study was technically difficult. * The study was technically limited. * Limited views were obtained. * There were technical limitations due to patient'sbody habitus * A contrast injection of Definity was performed to improve assessment of LV function. * Contrast was injected into an intravenous site in the right arm. * One vial of Definity ultrasound contrast was diluted in normal saline to a total volume of 10 ml. A total of '3' ml of solution was administered during imaging. * Lot # [id number] of Definity utilized for procedure. * Expiration date [id number]. * The attending nurse who injected the contrast agent was ZBIGNIEW Delcid. Left Ventricle * The left ventricular systolic function is grossly normal on limited visualizaiton. Regional wall motion cannot be assessed. Right Ventricle * The right ventricle is not well visualized. * The right ventricular systolic function is grossly normal on limited visualizaiton. Atria * The left atrium is moderately dilated. * Right atrium not well visualized. * The interatrial septum was not well visutalized and no comment can be made regarding atrial septal defect or PFO. Mitral Valve * The mitral valve is not well visualized. * There is no mitral valve stenosis. * Significant mitral regurgitation is absent. Tricuspid Valve * The tricuspid valve is not well visualized. * There is no tricuspid stenosis. * Significant tricuspid regurgitation is absent. Aortic Valve * The aortic valve is not well visualized. * Aortic stenosis is absent. * There is no significant aortic regurgitation. Pulmonic Valve * The pulmonary valve is not well seen, but the Doppler examination is normal without significant regurgitation or stenosis. Great Vessels * The aortic root and proximal ascending aorta are normal sized. Pericardium/Pleural * There is a small loculated anterior pericardial effusion. * There are no echocardiographic indications of cardiac tamponade. Great Vessels * Normal inferior vena cava diameter and respiratory variation suggests normal central venous pressure. MMode 2D Measurements and Calculations IVSd 1.4 cm IVSs 1.8 cm LVIDd 6.4 cm LVIDs 4.0 cm LVPWd 1.4 cm LVPWs 1.8 cm IVS/LVPW 0.99 FS 36.4 % EDV(Teich) 205.2 ml ESV(Teich) 71.8 ml EF(Teich) 65.0 % EDV(cubed) 256.7 ml ESV(cubed) 66.1 ml EF(cubed) 74.2 % % IVS thick 26.5 % % LVPW thick 25.6 % LV mass(C)d 438.6 grams LV mass(C)dI 146.3 grams/m\S\2 LV mass(C)s 318.3 grams LV mass(C)sI 106.1 grams/m\S\2 SV(Teich) 133.4 ml SI(Teich) 44.5 ml/m\S\2 SV(cubed) 190.6 ml SI(cubed) 63.5 ml/m\S\2 EPSS 0.62 cm Ao root diam 2.7 cm Ao root area 5.7 cm\S\2 ACS 2.4 cm LA dimension 5.9 cm asc Aorta Diam 4.0 cm LA/Ao 2.2 LVOT diam 2.2 cm LVOT area 4.0 cm\S\2 LVAd ap4 40.0 cm\S\2 LVLd ap4 8.7 cm EDV(MOD-sp4) 148.0 ml LVAs ap4 23.3 cm\S\2 LVLs ap4 7.7 cm ESV(MOD-sp4) 62.0 ml EF(MOD-sp4) 58.1 % LVAd ap2 30.1 cm\S\2 LVLd ap2 8.2 cm EDV(MOD-sp2) 94.0 ml LVAs ap2 18.5 cm\S\2 LVLs ap2 6.6 cm ESV(MOD-sp2) 43.0 ml EF(MOD-sp2) 54.3 % SV(MOD-sp4) 86.0 ml SI(MOD-sp4) 28.7 ml/m\S\2 SV(MOD-sp2) 51.0 ml SI(MOD-sp2) 17.0 ml/m\S\2 Doppler Measurements and Calculations MV E max gary 62.4 cm/sec MV dec time 0.19 sec Ao V2 max 118.3 cm/sec Ao max PG 5.6 mmHg Ao max PG (full) 3.1 mmHg VLADISLAV(V,A) 2.7 cm\S\2 VLADISLAV(V,D) 2.7 cm\S\2 LV V1 max PG 2.5 mmHg LV V1 max 79.5 cm/sec PA V2 max 126.2 cm/sec PA max PG 6.4 mmHg
[2016-10-07] MEDS ORDERED: AMIODARONE IV BOLUS / DRIP IV STA (14:32)
[2016-10-07] MEDS ORDERED: METOPROLOL TARTRATE 25 MG TAB PO ONE (14:33)
[2016-10-07] MEDS ORDERED: AMIODARONE / D5W 100 ML IV SCH (14:45)
--- NOTE | 2016-10-07 14:45 | Cardiology Consultation ---
Cardiology Consultation Date of Consultation: Oct 07, 2016 History of Present Illness Darrius CasonJr is a 46 year old male seen in cardiac consultation per the request of Dr. Tyson for the evaluation of atrial flutter with rapid ventricular rate. The patient's primary care provider is Dr. Crowder at [facility]. He has not previously been followed by cardiology. The patient has recently been followed closely by primary care for if occultly with loose stools. He was to undergo an elective colonoscopy yesterday for further evaluation of intermittent diarrhea. He had gotten undressed, and was being prepped for the procedure when he was noted to be diaphoretic and short of breath and complained of it being hot. An EKG was performed on 10/06/2016 at 10: 22 AM which revealed atrial flutter with 2-1 AV conduction at 134 bpm with incomplete right bundle branch block pattern. An H&H from anterior infarction cannot be excluded. The patient was therefore referred to the emergency department. He was since admitted to telemetry and unfractionated heparin infusion as well as a diltiazem infusion were started. He is currently on diltiazem and rate of 50 mg/h and his ventricular rate is still relatively fast at 115 bpm. During my evaluation the patient was sitting at the bedside. He had no subjective sensation that his heart was racing. Notes generalized fatigue. Yesterday he noted shortness of breath. He has a history of COPD and quit smoking just over a year ago. He is a history of obstructive sleep apnea and is on CPAP therapy chronically. He is using a hospital machine all he is here and tolerated it well last night. He is also treated for chronic lower extremity edema/lymphedema and sees the lymphedema clinic at [facility] and takes furosemide. He notes his cholesterol has been well-controlled as outpatient in the past and has not required medication. History Past Medical History: 1. Obesity 2. Obstructive sleep apnea 3. Former cigarette smoker 4. Gastric esophageal reflux disease 5. Recent history of intermittent diarrhea Past Surgical History: Past colonoscopy Social History: Former smoker. Single and lives alone. Denies routine alcohol use. He recently found out that he is losing his job and he notes his insurance is going to in January 2017. Family History: Father is alive at age 65 with recent myocardial infarction and stents Mother has no history of heart disease His maternal grandmother of complications after a myocardial infarction including kidney failure Maternal aunt of presumed myocardial infarction in her 40s Review Of Systems See above for pertinent positives & negatives. A total of 10 systems reviewed and were otherwise negative. Allergies Coded Allergies: No Known Allergies (Unverified , 10/06/16) Medications Reported Home Medications Medications Dose Route/Sig Max Daily Dose Days Date Category Aleve (Naproxen) 220 Mg Tab 220 Mg PO Q4 PRN 10/06/16 Reported Proair Respiclick (Albuterol Sulfate) 108 Mcg/Act Aer 2 Puffs INH QID PRN 10/06/16 Reported Micro-K Ext Rel (Potassium Chloride) 10 Meq Cap 20 Meq PO BID PRN 10/06/16 Reported Spiriva Handihaler (Tiotropium [place]) 5 Puff/90 Mcg Aerp 1 Cap INH QAM 10/06/16 Reported Osteo Bi-Flex Regular Str (Glucosamine-Chondroitin) 1 Tab Tab 1 Tab PO QAM 10/03/16 Reported Prilosec (Omeprazole) 20 Mg Capcr 20 Mg PO QAM 10/03/16 Reported Lasix (Furosemide) 80 Mg Tab 80 Mg PO BID PRN 03/02/15 Reported Symbicort 160/4.5 Inhaler (Budesonide/Formoterol Fumarate) 120 Puffs/ Aero 2 Puffs INH BID 03/02/15 Reported Physical Exam Vital Signs (Last 8hrs): Last 8 Hrs Date Time Temp Pulse Resp B/P (MAP) Pulse Ox O2 Delivery O2 Flow Rate FiO2 10/07/16 12:00 36.7 114 25 144/82 (102) 90 Room Air 10/07/16 08:42 36.1 106 24 146/96 (113) 96 CPAP General Appearance: Alert and Oriented x3. NAD. Head: Normocephalic Atraumatic. Eyes: PERRLA, EOMI, conjunctiva and sclera clear Neck: Supple. No carotid bruits noted. No JVD. No HJD. Respiratory: Breath sounds clear to auscultation bilaterally. No w/r/r. Cardiovascular: Reg rate and rhythm. S1 and S2 noted. No murmurs, rubs, gallops. PMI non displace. Abdomen: Normal bowel sounds, soft nontender. no abdominal bruits. Extremities: No edema, no clubbing or cyanosis. distal pulses 2/4 bilaterally. Neuro: No focal deficits. Psychiatric: Normal affect. Data Last Resulted 10/07/16 04:35 Last Resulted 10/07/16 04:35 Past 24 Hours Test 10/06/16 19:02 10/07/16 00:35 Range/Units Creatine Kinase MB 3.2 3.6 0.5-3.6 ng/ml Creatine Kinase MB Ratio 1.6 1.6 0-3.0 Total Creatine Kinase 196 220 39-308 U/L Troponin I 0.017 0.022 0-0.045 ng/ml EKG as above. Telemetry is noted above. Assessment & Plan Impression: 46-year-old male 1. Newly recognized atrial flutter with rapid ventricular rate, incomplete right bundle branch block morphology 2. Technically limited echocardiogram due to poor acoustic windows, with grossly normal biventricular function, small loculated anterior pericardial effusion without tamponade physiology 3. Morbid obesity 4. Suspected underlying obesity hypoventilation syndrome given body habitus, left atrial enlargement, history of obstructive sleep apnea Plan: The patient is to recent medical contact leading up to this with workup for diarrhea and referral for colonoscopy and I think that if he was significantly tachycardic this would've been detected at the time his recent family practice visit. I therefore suspect that the atrial flutter was new in onset and associated with his colonoscopy prep. He was on anticoagulation with heparin overnight. Diltiazem was started and his been escalated to a dose of 50 mg/h but his rate is still elevated. He is minimally symptomatic. At present, continue heparin infusion with plans to transition him to our requests at 2100 hrs. amie 10/07/2016 Since he has been in the rhythm just over 24 hours, or make efforts to try to chemically cardiovert him and therefore amiodarone infusion will be added to his IV diltiazem. Oral metoprolol tartrate will also be added. The patient had already received a small dose of oral potassium for his mild hypokalemia earlier today. A CT angiogram was negative for pulmonary embolus him. Patient describes no symptoms suggestive of angina to me. Jamil Santiago D.O.
[2016-10-07] MEDS: AMIODARONE / D5W 200 ML IV SCH ×3 (15:09→21:01)
[2016-10-07 16:12] VITALS: BP 160/90; PULSE 81; TEMP 36.9; O2SAT 91
[2016-10-07] MEDS: METOPROLOL TARTRATE 25 MG TAB PO SCH (19:33)
[2016-10-07 20:02] VITALS: BP 142/76; PULSE 86; TEMP 37; O2SAT 91
[2016-10-07] MEDS: APIXABAN 2.5 MG TAB PO SCH (21:04)
[2016-10-08] VITALS (7 sets, daily range): BP systolic 122–160; BP diastolic 76–97; PULSE 80–96; TEMP 36.6–37.1; O2SAT 90–98
[2016-10-08] MEDS: METOPROLOL TARTRATE 25 MG TAB PO SCH ×4 (00:33→17:01)
[2016-10-08] MEDS: AMIODARONE / D5W 200 ML IV SCH ×5 (02:47→19:49)
[2016-10-08 04:45] LABS: MEAN CELL VOLUME 88.4 fL (80-100); MEAN CORPUSCULAR HEMOGLOBIN 27.7 pg (25-34); MEAN PLATELET VOLUME 9.9 fL (7.4-10.4); PLATELET COUNT 286 K/uL (130-400); RED BLOOD COUNT 4.98 M/uL (4.7-6.1)
[2016-10-08 04:57] LABS: MEAN CORPUSCULAR HGB CONC 31.4 g/dl (32-36)
[2016-10-08 05:10] LABS: BUN/CREATININE RATIO 10.9 (10-20); CALCIUM 8.5 mg/dl (8.5-10.1); CREATININE 0.83 mg/dl (0.60-1.40); POTASSIUM 3.9 mmol/L (3.5-5.1)
[2016-10-08] MEDS: BUDESONIDE/FORMOTEROL FUMARATE 160/4.5 60 PUFFS/INHALER INH SCH ×2 (08:52→21:23)
[2016-10-08] MEDS: TIOTROPIUM BROMIDE 5 PUFF/90 MCG INH INH SCH (08:53)
[2016-10-08] MEDS: PANTOprazole SOD 40 MG TAB PO SCH (08:53)
[2016-10-08] MEDS: APIXABAN 2.5 MG TAB PO SCH (08:53)
--- NOTE | 2016-10-08 10:37 | Progress Note ---
Internal Med Progress Note Date of Service: Oct 08, 2016. Provider Documentation: SUBJECTIVE: Patient is doing well and eager to be discharged. Denies any palpitations, chest pain, leg swelling, fever, chills, nausea, vomiting. No c/o cough. Tele- Atrial flutter with HR- 80s On IV Amiodarone drip OBJECTIVE: Vital Signs-as noted below Exam: General-AAOX3, Morbidly obese+, no distress Neck-Short neck Lungs-AEBE, no wheezing, rales Heart-Irregularly irregular Extremities-No edema bilaterally Lab data as noted below. Diagnostic Radiology CHEST ONE VIEW PORTABLE HISTORY: dysrhythmia, sob COMPARISON: Chest 03/02/2015. FINDINGS: Moderate cardiomegaly has progressed. Diffuse interstitial and vascular thickening has also increased. This consistent with pulmonary edema. Suspect trace bilateral pleural effusions. No pneumothorax. Increased density within the right medial lung base. IMPRESSION: 1. Progression of the moderate cardiomegaly and pulmonary edema. 2. Right medial lung base opacity. This could be due to the pulmonary edema or developing pneumonia. Recommend follow-up to ensure resolution. CT ANGIOGRAM OF THE CHEST CLINICAL HISTORY: Atypical chest pain COMPARISON STUDY: Chest x-ray dated 10-21 TECHNIQUE: Following the IV administration of 117 mL of Optiray-320, CT angiogram of the thorax was performed from the thoracic inlet to the lung bases utilizing the pulmonary embolus protocol. Images are reviewed in the axial, sagittal, and coronal planes. IV contrast was administered without complication. MIP imaging was performed. CT DOSE: 912.53 mGy.cm FINDINGS: There are mildly enlarged right paratracheal lymph nodes measuring up to 16 mm in diameter. There is a mildly enlarged AP window lymph node. There is no pathologic axillary lymphadenopathy. Hilar lymph nodes are the upper limits of normal in size. There was no evidence of thoracic aortic dilatation. Pulmonary arterial opacification is somewhat limited in part due to the patient's large body habitus. No central emboli are visualized. No pleural effusions are visualized. There is suspected mild septal edema. There is a small focal airspace opacity within the right lower lobe. This is likely either atelectatic or inflammatory. Radiographic follow-up is recommended. The heart is enlarged IMPRESSION: 1. No CT evidence of acute pulmonary embolism 2. Cardiomegaly and mild septal edema 3. Small focal right lower lobe airspace opacity, likely on an atelectatic or inflammatory. Radiographic follow-up is recommended 4. Mild mediastinal adenopathy EKG aflutter with variable AV block HR 115 ASSESSMENT & PLAN: Assessment and Plan : 46 yo obese man presents with new onset atrial fibrillation with RVR while preparing for colonoscopy. ATRIAL FLUTTER WITH RVR (New onset)- Now rate controlled Patient was undergoing colonoscopy prep when he was noted to be in Atrial Fibrillation with RVR. -Risk factors: Probable HTN (not on any medications), Mobidly obese -S/P IV Cardizem drip at 15 mg/hour. On IV Amiodarone started on 10/07/16. Started Metoprolol 25 mg Q6 hours on 10/07/16 -Anticoagulation- IV heparin drip--> Changed to Apixaban 5 mg PO BID per cardiology. May consider cardioversion in future -Work up- Trop x 3 - neg, TSH- normal, CT scan chest- No PE, some pulm edema, right medial lung opacity- atelectasis vs pneumonia., but clinically no signs of pneumonia. -Cardiology consulted. Echo - EF grossly normal, No regional wall motion abnormalities, Small loculated pericardial effusion, right ventricle not well visualized, Valves not well visualized, no sig stenosis/regurgitation. VOLUME OVERLOAD Likely secondary to A fib with RVR -Received a dose of IV Lasix 40 mg on admission -Work up- BNP 700s, CXR/CT scan- mild pulm edema, Echo- as above. -Will re - assess on a daily basis for lasix need. COPD Stable -No signs of exacerbation ZORA- -Compliant with Mask/CPAP CHRONIC LYMPHEDEMA Uses lasix on and off. -No indication for it DVT PROPHYLAXIS - Heparin drip--. Changed to Elliquis 5 mg PO BID FULL CODE DISPOSITION Continue with tele monitoring Eager to be discharged. Convinced him to stay tonight . Still on amiodarone drip Will get SS to look into insurance coverage for Antonia Vital Signs: Date Time Temp Pulse Resp B/P (MAP) Pulse Ox O2 Delivery O2 Flow Rate FiO2 10/08/16 07:41 36.9 80 20 142/95 (111) 90 Room Air 10/08/16 04:00 Room Air 10/08/16 03:46 36.6 82 18 133/84 (100) 95 CPAP 10/08/16 00:09 36.8 83 18 130/83 (99) 98 CPAP 10/08/16 00:00 Room Air 10/07/16 20:02 37.0 86 18 142/76 (98) 91 Room Air 10/07/16 20:00 Room Air 10/07/16 16:12 36.9 81 18 160/90 (113) 91 Room Air 10/07/16 16:00 Room Air 10/07/16 12:00 Room Air 10/07/16 12:00 36.7 114 25 144/82 (102) 90 Room Air Lab Results: Results Past 24 Hours Test 10/08/16 04:40 Range/Units White Blood Count 8.20 4.8-10.8 K/uL Red Blood Count 4.98 4.7-6.1 M/uL Hemoglobin 13.8 14.0-18.0 g/dL Hematocrit 44.0 42-52 % Mean Corpuscular Volume 88.4 80-100 fL Mean Corpuscular Hemoglobin 27.7 25-34 pg Mean Corpuscular Hemoglobin Concent 31.4 32-36 g/dl RDW Standard Deviation 47.7 36.4-46.3 fL RDW Coefficient of Variation 14.8 11.5-14.5 % Platelet Count 286 130-400 K/uL Mean Platelet Volume 9.9 7.4-10.4 fL Activated Partial Thromboplast Time 27.2 21.0-31.0 SECONDS Partial Thromboplastin Ratio 1.0 Sodium Level 141 136-145 mmol/L Potassium Level 3.9 3.5-5.1 mmol/L Chloride Level 106 98-107 mmol/L Carbon Dioxide Level 32 21-32 mmol/L Anion Gap 3.0 3-11 mmol/L Blood Urea Nitrogen 9 7-18 mg/dl Creatinine 0.83 0.60-1.40 mg/dl Est Creatinine Clear Calc Drug Dose 197.8 ml/min Estimated GFR () 121.4 Estimated GFR (Non- 104.8 BUN/Creatinine Ratio 10.9 10-20 Random Glucose 109 70-99 mg/dl Calcium Level 8.5 8.5-10.1 mg/dl Magnesium Level 2.0 1.8-2.4 mg/dl
--- NOTE | 2016-10-08 13:43 | Cardiology Follow-Up ---
Subjective General Date of Service: Oct 08, 2016. Chief Complaint: follow up AFL Pt evaluation today including: conversation w/ patient, physical exam History of Present Illness The patient is a 46 year old male seen in follow up. Patient without complaint. Has chronic SOB that is unchanged compared to baseline. Allergies Coded Allergies: No Known Allergies (Unverified , 10/06/16) Social History Smoking Status: Former Smoker Hx Tobacco Use In Past Year?: No Hx Alcohol Use - Type And Amou: No Hx Substance Use - Type And Am: No Problem List Medical Problems: (1) Atrial fibrillation Status: Acute Physical Exam Vital Signs Last Vital Signs Documentation Date Time Temp Pulse Resp B/P (MAP) Pulse Ox O2 Delivery O2 Flow Rate FiO2 10/08/16 11:55 37.1 96 18 122/76 (91) 91 Room Air 10/06/16 17:01 2.0 Physical Exam Constitutional: Level of Distress: NAD Neck: supple Lungs: Auscultation: no wheezing, no rales/crackles, no rhonchi Cardiovascular: Heart Auscultation: no murmurs Extremities: pertinent finding (1-2 + bilateral LE edema, venous stasis changes ) Assessment and Plan Assessment and Plan Impression: 46-year-old male 1. Newly recognized atrial flutter with rapid ventricular rate, incomplete right bundle branch block morphology 2. Technically limited echocardiogram due to poor acoustic windows, with grossly normal biventricular function, small loculated anterior pericardial effusion without tamponade physiology 3. Morbid obesity 4. Suspected underlying obesity hypoventilation syndrome given body habitus, left atrial enlargement, history of obstructive sleep apnea Plan: Continue IV amiodarone. Add oral. Increase PO metoprolol to 37.5 mg by mouth QID. DC Eliquis due to potential interaction with amiodarone (increases Eliquis levels and increases bleeding risk). Start Pradaxa in its place. Laboratory Results Last 24 Hours Test 10/08/16 04:40 White Blood Count 8.20 K/uL Red Blood Count 4.98 M/uL Hemoglobin 13.8 g/dL Hematocrit 44.0 % Mean Corpuscular Volume 88.4 fL Mean Corpuscular Hemoglobin 27.7 pg Mean Corpuscular Hemoglobin Concent 31.4 g/dl RDW Standard Deviation 47.7 fL RDW Coefficient of Variation 14.8 % Platelet Count 286 K/uL Mean Platelet Volume 9.9 fL Activated Partial Thromboplast Time 27.2 SECONDS Partial Thromboplastin Ratio 1.0 Sodium Level 141 mmol/L Potassium Level 3.9 mmol/L Chloride Level 106 mmol/L Carbon Dioxide Level 32 mmol/L Anion Gap 3.0 mmol/L Blood Urea Nitrogen 9 mg/dl Creatinine 0.83 mg/dl Est Creatinine Clear Calc Drug Dose 197.8 ml/min Estimated GFR () 121.4 Estimated GFR (Non- 104.8 BUN/Creatinine Ratio 10.9 Random Glucose 109 mg/dl Calcium Level 8.5 mg/dl Magnesium Level 2.0 mg/dl
[2016-10-08] MEDS: AMIODARONE 200 MG TAB PO SCH ×2 (17:00→21:21)
[2016-10-08] MEDS: DABIGATRAN ELEXILATE 75 MG CAP PO SCH (21:22)
[2016-10-09 00:28] VITALS: BP 128/86; PULSE 84; TEMP 36.4; O2SAT 95
[2016-10-09 04:48] VITALS: BP 136/85; PULSE 81; TEMP 36.4; O2SAT 95
[2016-10-09 04:52] LABS: PARTIAL THROMBOPLASTIN RATIO 1.3
[2016-10-09] MEDS: METOPROLOL TARTRATE 25 MG TAB PO SCH ×2 (05:35→05:38)
[2016-10-09 07:05] VITALS: BP 147/96; PULSE 83; TEMP 36.7; O2SAT 90
--- NOTE | 2016-10-09 09:21 | Cardiology Follow-Up ---
Subjective General Date of Service: Oct 09, 2016. Chief Complaint: follow up AFL Pt evaluation today including: conversation w/ patient, physical exam History of Present Illness The patient is a 46 year old male seen in follow up. Patient feeling well. Denies subjective SOB or palpitations. Telemetry reveals rate controlled AFL in the 80 bpm range. Allergies Coded Allergies: No Known Allergies (Unverified , 10/06/16) Social History Smoking Status: Former Smoker Hx Tobacco Use In Past Year?: No Hx Alcohol Use - Type And Amou: No Hx Substance Use - Type And Am: No Problem List Medical Problems: (1) Atrial fibrillation Status: Acute Physical Exam Vital Signs Last Vital Signs Documentation Date Time Temp Pulse Resp B/P (MAP) Pulse Ox O2 Delivery O2 Flow Rate FiO2 10/09/16 07:05 36.7 83 21 147/96 (113) 90 Room Air 10/06/16 17:01 2.0 Physical Exam Constitutional: Level of Distress: NAD Neck: supple Lungs: Auscultation: no wheezing, no rales/crackles, no rhonchi Cardiovascular: Heart Auscultation: no murmurs Extremities: pertinent finding (1-2 + bilateral LE edema, venous stasis changes ) Assessment and Plan Assessment and Plan Impression: 46-year-old male 1. Newly recognized atrial flutter with rapid ventricular rate (rate now controlled), incomplete right bundle branch block morphology 2. Technically limited echocardiogram due to poor acoustic windows, with grossly normal biventricular function, small loculated anterior pericardial effusion without tamponade physiology 3. Morbid obesity 4. Suspected underlying obesity hypoventilation syndrome given body habitus, left atrial enlargement, history of obstructive sleep apnea- already on home CPAP Plan: Patient is eager for discharge as he has a non medical appointment out of town today. DC amiodarone infusion: Discharge from hospital on Pradaxa 150 mg PO BID, patient checked with his formulary $30 copy for 1 month supply. Metoprolol tartrate 100 mg by mouth two times per day. Amiodarone 200 mg by mouth two times per day. Continue outpatient lasix routine. Avoid Naproxen, pt counseled to use Tylenol for aches and pains. Disposition: Outpatient cardio follow up in 2 weeks, at which time will reassess for need of elective cardioversion after anticoagulated for 3-4 weeks. Laboratory Results Last 24 Hours Test 10/09/16 04:34 Activated Partial Thromboplast Time 34.3 SECONDS Partial Thromboplastin Ratio 1.3
[2016-10-09] MEDS: DABIGATRAN ELEXILATE 75 MG CAP PO SCH (09:59)
[2016-10-09] MEDS: TIOTROPIUM BROMIDE 5 PUFF/90 MCG INH INH SCH (09:59)
[2016-10-09] MEDS: BUDESONIDE/FORMOTEROL FUMARATE 160/4.5 60 PUFFS/INHALER INH SCH (09:59)
--- NOTE | 2016-10-09 10:05 | Progress Note ---
Internal Med Progress Note Date of Service: Oct 09, 2016. Provider Documentation: SUBJECTIVE: Patient is doing well and eager to be discharged. Denies any palpitations, chest pain, leg swelling, fever, chills, nausea, vomiting. No c/o cough. Tele- Atrial flutter with HR- 80s On IV Amiodarone drip OBJECTIVE: Vital Signs-as noted below Exam: General-AAOX3, Morbidly obese+, no distress Neck-Short neck Lungs-AEBE, no wheezing, rales Heart-Irregularly irregular Extremities-No edema bilaterally Lab data as noted below. Diagnostic Radiology CHEST ONE VIEW PORTABLE HISTORY: dysrhythmia, sob COMPARISON: Chest 03/02/2015. FINDINGS: Moderate cardiomegaly has progressed. Diffuse interstitial and vascular thickening has also increased. This consistent with pulmonary edema. Suspect trace bilateral pleural effusions. No pneumothorax. Increased density within the right medial lung base. IMPRESSION: 1. Progression of the moderate cardiomegaly and pulmonary edema. 2. Right medial lung base opacity. This could be due to the pulmonary edema or developing pneumonia. Recommend follow-up to ensure resolution. CT ANGIOGRAM OF THE CHEST CLINICAL HISTORY: Atypical chest pain COMPARISON STUDY: Chest x-ray dated 10-21 TECHNIQUE: Following the IV administration of 117 mL of Optiray-320, CT angiogram of the thorax was performed from the thoracic inlet to the lung bases utilizing the pulmonary embolus protocol. Images are reviewed in the axial, sagittal, and coronal planes. IV contrast was administered without complication. MIP imaging was performed. CT DOSE: 912.53 mGy.cm FINDINGS: There are mildly enlarged right paratracheal lymph nodes measuring up to 16 mm in diameter. There is a mildly enlarged AP window lymph node. There is no pathologic axillary lymphadenopathy. Hilar lymph nodes are the upper limits of normal in size. There was no evidence of thoracic aortic dilatation. Pulmonary arterial opacification is somewhat limited in part due to the patient's large body habitus. No central emboli are visualized. No pleural effusions are visualized. There is suspected mild septal edema. There is a small focal airspace opacity within the right lower lobe. This is likely either atelectatic or inflammatory. Radiographic follow-up is recommended. The heart is enlarged IMPRESSION: 1. No CT evidence of acute pulmonary embolism 2. Cardiomegaly and mild septal edema 3. Small focal right lower lobe airspace opacity, likely on an atelectatic or inflammatory. Radiographic follow-up is recommended 4. Mild mediastinal adenopathy EKG aflutter with variable AV block HR 115 ASSESSMENT & PLAN: Assessment and Plan : 46 yo obese man presents with new onset atrial fibrillation with RVR while preparing for colonoscopy. ATRIAL FLUTTER WITH RVR (New onset)- Now rate controlled Patient was undergoing colonoscopy prep when he was noted to be in Atrial Flutter with RVR. -Risk factors: Probable HTN (not on any medications), Morbidly obese -S/P IV Cardizem drip at 15 mg/hour. On IV Amiodarone started on 10/07/16. Started Metoprolol 25 mg Q6 hours on 10/07/16 -Anticoagulation- IV heparin drip--> Changed to Apixaban 5 mg PO BID per cardiology. May consider elective cardioversion in future -Work up- Trop x 3 - neg, TSH- normal, CT scan chest- No PE, some pulm edema, right medial lung opacity- atelectasis vs pneumonia., but clinically no signs of pneumonia. -Cardiology consulted. Echo - EF grossly normal, No regional wall motion abnormalities, Small loculated pericardial effusion, right ventricle not well visualized, Valves not well visualized, no sig stenosis/regurgitation. PLAN: Per cardiology. IV amiodarone changed to PO amiodarone 200 mg PO BID. Metoprolol changed to 100 mg BID, Apixaban changed to Pradaxa 150 mg PO BID ( has only $ 30 copay). Cleared for discharge per cardiology with follow up in 2 weeks. VOLUME OVERLOAD - Resolved Likely secondary to A fib with RVR -Received a dose of IV Lasix 40 mg on admission. To continue lasix as needed as prior to admission -Work up- BNP 700s, CXR/CT scan- mild pulm edema, Echo- as above. COPD Stable -No signs of exacerbation ZORA- -Compliant with Mask/CPAP MORBID OBESITY OBESITY HYPOVENTILATION SYNDROME CHRONIC LYMPHEDEMA Uses lasix on and off. -No indication for it DVT PROPHYLAXIS - Heparin drip--> Apixaban 5 mg BID FULL CODE DISPOSITION Eager to be discharged. Cleared for discharge to home today by cardiology Okay to discharge home with f/up with PCP, Cardiology Vital Signs: Date Time Temp Pulse Resp B/P (MAP) Pulse Ox O2 Delivery O2 Flow Rate FiO2 10/09/16 07:05 36.7 83 21 147/96 (113) 90 Room Air 10/09/16 04:48 36.4 81 18 136/85 (102) 95 CPAP 10/09/16 04:00 Room Air 10/09/16 00:28 36.4 84 18 128/86 (100) 95 CPAP 10/09/16 00:00 Room Air 10/08/16 20:00 Room Air 10/08/16 19:26 36.8 85 18 160/97 (118) 91 Room Air 10/08/16 16:00 Room Air 10/08/16 14:58 36.6 84 22 138/92 (107) 92 Room Air 10/08/16 12:00 Room Air 10/08/16 11:55 37.1 96 18 122/76 (91) 91 Room Air Lab Results: Results Past 24 Hours Test 10/09/16 04:34 Range/Units Activated Partial Thromboplast Time 34.3 21.0-31.0 SECONDS Partial Thromboplastin Ratio 1.3
[2016-10-09] MEDS ORDERED: CRD200 PO (10:07)
[2016-10-09] MEDS ORDERED: LPR100 PO (10:07)
[2016-10-09] MEDS ORDERED: PRD75 PO (10:07)
--- NOTE | 2016-10-09 10:09 | Discharge Instructions ---
Discharge Instructions Date of Service Oct 09, 2016. Admission Reason for Admission: Atrial Fibrillation With Rvr Discharge Discharge Diagnosis / Problem: 1. Atrial Flutter with Rapid ventricular rate Discharge Goals Goal(s): Diagnostic testing, Therapeutic intervention Activity Recommendations Activity Limitations: resume your previous activity (as tolerated prior to admission) . Instructions / Follow-Up Instructions / Follow-Up MEDICATION CHANGES : 1. New medication: Pradaxa 150 mg PO BID 2. New medication: Metoprolol 100 mg PO BID 3. New medication: Amiodarone 200 mg PO BID 4. Discontinued Naproxen. Use tylenol PRN for pain instead as newly started you on anticoagulant FOLLOW UP 1. Follow up with Dr Crowder on 10/13/16 at 11:05 AM 2. Follow up with Dr Santiago, cardiology in 2 weeks. You will get a call from office for appt date/time NEED WEIGHT REDUCTION Current Hospital Diet Patient's current hospital diet: Regular Diet Discharge Diet Recommended Diet: AHA Diet (Heart Healthy), Low Sodium Diet (2gm Na), Low Fat Diet Pending Studies Studies pending at discharge: no Laboratory Results Lipid Panel Test 10/07/16 04:35 Range/Units Triglycerides Level 109 0-150 mg/dl Cholesterol Level 152 0-200 mg/dl HDL Cholesterol 32 mg/dl Cholesterol/HDL Ratio 4.8 LDL Cholesterol, Calculated 98 mg/dl Medical Emergencies . Who to Call and When: Medical Emergencies: If at any time you feel your situation is an emergency, please call 911 immediately. . Non-Emergent Contact Non-Emergency issues call your: Primary Care Provider . . "Provider Documentation" section prepared by Brenda Edwards. . VTE Core Measure Inpt VTE Proph given/why not?: Other Anticoagulation
--- NOTE | 2016-10-09 10:12 | Discharge Summary ---
Discharge Summary Date of Service Oct 09, 2016. Discharge Summary Admission Date: Oct 06, 2016 at 18:34 Discharge Date: Oct 09, 2016 Discharge Disposition: Home Principal Diagnosis: 1. Atrial Flutter with RVR Secondary Diagnoses/Problems: 1. COPD 2. ZORA ON CPAP 3. Obesity hypoventilation syndrome 4. Morbid obesity 5. Chronic lymphedema Procedures: Tele monitoring IV amiodarone drip IV cardizem drip IV Heparin drip Serial EKG Serial Troponin Echocardiogram CXR Consultations: Cardiology, Dr Santiago Pending Studies/Follow-Up: Instructions / Follow-Up Instructions / Follow-Up MEDICATION CHANGES : 1. New medication: Pradaxa 150 mg PO BID 2. New medication: Metoprolol 100 mg PO BID 3. New medication: Amiodarone 200 mg PO BID 4. Discontinued Naproxen. Use tylenol PRN for pain instead as newly started you on anticoagulant FOLLOW UP 1. Follow up with Dr Crowder on 10/13/16 at 11:05 AM 2. Follow up with Dr Santiago, cardiology in 2 weeks. You will get a call from office for appt date/time NEED WEIGHT REDUCTION Medication Reconciliation New Medications: Amiodarone HCl (Amiodarone HCl) 200 Mg Tab 200 MG PO BID for 30 Days, #60 TAB Dabigatran Elexilate (Pradaxa) 75 Mg Cap 150 MG PO BID for 30 Days, #60 CAP 2 Refills Metoprolol Tartrate (Metoprolol Tartrate) 100 Mg Tab 100 MG PO BID for 30 Days, #60 TAB Continued Medications: Albuterol Sulfate (Proair Respiclick) 108 Mcg/Act Aer 2 PUFFS INH QID PRN for Shortness of Breath Budesonide/Formoterol Fumarate (Symbicort 160/4.5 Inhaler) 120 Puffs/ Aero 2 PUFFS INH BID, INHALER Furosemide (Lasix) 80 Mg Tab 80 MG PO BID PRN for edema, TAB Glucosamine-Chondroitin (Osteo Bi-Flex Regular Str) 1 Tab Tab 1 TAB PO QAM Omeprazole (Prilosec) 20 Mg Capcr 20 MG PO QAM Potassium Chloride (Micro-K Ext Rel) 10 Meq Cap 20 MEQ PO BID PRN for TAKE WITH LASIX, CAP Tiotropium [place] (Spiriva Handihaler) 5 Puff/90 Mcg Aerp 1 CAP INH QAM Discontinued Medications: Naproxen (Aleve) 220 Mg Tab 220 MG PO Q4 PRN for Headache, TAB Admission Information HPI (per Admitting provider): 46 yo obese male presents today after going for a colonoscopy and being found in new onset atrial fibrillation with RVR. He reports no symptoms at all including no chest pain, lightheadedness, or shortness of breath. He states he got a little winded undressing and laying up on the operating table but that was normal for him. He reports drinking 2L of caffeinated soda daily and states that he hasn't had any caffeine today because of the GI prep requirements , which gave him a headache this morning. He only uses alcohol occasionally. He is a prior smoker for 32 years but quit one year ago successfully. He otherwise reports a history of chronic diarrhea (which he reports is twice daily semi-formed stool) which has been ongoing for the past 6 weeks. He has had a trial of cipro and probiotics and was going for the colonoscopy for further part of that workup. In the ER, CTA was negative for PE, however imaging showed some fluid overload. Volume status is difficult to gauge in him because of his size, and he also has some chronic lymphedema in his abdomen and legs. He takes PRN Lasix which equates to 3 times monthly but did feel he needed it yesterday because his legs appeared more swollen. ROS is otherwise negative. Physical Exam (per Admitting): GEN:morbidly obese, in no acute distress, alert and appropriate HEENT: NC/AT, PERRL, normal sclerae/comjunctivae, MMM, pharynx is non acute CARDIO: tachy rate that sounds very regular, S1/2 heard without m/g/r LUNGS: CTA bilaterally, no crackles, rales or wheezes, good diaphragmatic excursion ABD: soft, non-tender, non-distended, no rebound or guarding, +BS, dependent edema in skin folds EXTREMITY: RP and DP palpable 2+ bilat, chronic venous stasis changes, edema present that is not pitting, extremities are warm and well-perfused NEURO: CN 2-12 intact, sensation intact throughout, no gross focal deficits. MUSC: 5/5 strength throughout, no focal deficits SKIN: warm and dry with chronic sking changes in edematous areas including abdomen and legs. Hospital Course Assessment and Plan : 46 yo obese man presents with new onset atrial fibrillation with RVR while preparing for colonoscopy. ATRIAL FLUTTER WITH RVR (New onset)- Now rate controlled Patient was undergoing colonoscopy prep when he was noted to be in Atrial Flutter with RVR. -Risk factors: Probable HTN (not on any medications), Morbidly obese -S/P IV Cardizem drip at 15 mg/hour. On IV Amiodarone started on 10/07/16. Started Metoprolol 25 mg Q6 hours on 10/07/16 -Anticoagulation- IV heparin drip--> Changed to Apixaban 5 mg PO BID per cardiology. May consider elective cardioversion in future -Work up- Trop x 3 - neg, TSH- normal, CT scan chest- No PE, some pulm edema, right medial lung opacity- atelectasis vs pneumonia., but clinically no signs of pneumonia. -Cardiology consulted. Echo - EF grossly normal, No regional wall motion abnormalities, Small loculated pericardial effusion, right ventricle not well visualized, Valves not well visualized, no sig stenosis/regurgitation. PLAN: Per cardiology. IV amiodarone changed to PO amiodarone 200 mg PO BID. Metoprolol changed to 100 mg BID, Apixaban changed to Pradaxa 150 mg PO BID ( has only $ 30 copay). Cleared for discharge per cardiology with follow up in 2 weeks. VOLUME OVERLOAD - Resolved Likely secondary to A fib with RVR -Received a dose of IV Lasix 40 mg on admission. To continue lasix as needed as prior to admission -Work up- BNP 700s, CXR/CT scan- mild pulm edema, Echo- as above. COPD Stable -No signs of exacerbation ZORA- -Compliant with Mask/CPAP MORBID OBESITY OBESITY HYPOVENTILATION SYNDROME CHRONIC LYMPHEDEMA Uses lasix on and off. -No indication for it DVT PROPHYLAXIS - Heparin drip--> Apixaban 5 mg BID FULL CODE DISPOSITION Eager to be discharged. Cleared for discharge to home today by cardiology Okay to discharge home with f/up with PCP, Cardiology Total time spent on discharge = 35 MINUTES This includes examination of the patient, discharge planning, medication reconciliation, and communication with other providers. Discharge Instructions Activity Recommendations Activity Limitations: resume your previous activity (as tolerated prior to admission) . Instructions / Follow-Up Instructions / Follow-Up MEDICATION CHANGES : 1. New medication: Pradaxa 150 mg PO BID 2. New medication: Metoprolol 100 mg PO BID 3. New medication: Amiodarone 200 mg PO BID 4. Discontinued Naproxen. Use tylenol PRN for pain instead as newly started you on anticoagulant FOLLOW UP 1. Follow up with Dr Crowder on 10/13/16 at 11:05 AM 2. Follow up with Dr Santiago, cardiology in 2 weeks. You will get a call from office for appt date/time NEED WEIGHT REDUCTION Current Hospital Diet Patient's current hospital diet: Regular Diet Discharge Diet Recommended Diet: AHA Diet (Heart Healthy), Low Sodium Diet (2gm Na), Low Fat Diet Pending Studies Studies pending at discharge: no Laboratory Results Lipid Panel Test 10/07/16 04:35 Range/Units Triglycerides Level 109 0-150 mg/dl Cholesterol Level 152 0-200 mg/dl HDL Cholesterol 32 mg/dl Cholesterol/HDL Ratio 4.8 LDL Cholesterol, Calculated 98 mg/dl Medical Emergencies . Who to Call and When: Medical Emergencies: If at any time you feel your situation is an emergency, please call 911 immediately. . Non-Emergent Contact Non-Emergency issues call your: Primary Care Provider . . "Provider Documentation" section prepared by Brenda Edwards. . VTE Core Measure Inpt VTE Proph given/why not?: Other Anticoagulation
[2016-10-09 12:03] VITALS: BP 147/96; PULSE 83; TEMP 36.7; O2SAT 90
[2016-10-09] MEDS ORDERED: AMIODARONE 200 MG TAB PO SCH (21:00)
[2016-10-09] MEDS ORDERED: METOPROLOL TARTRATE 100 MG TAB PO SCH (21:00)
== END 2016-10-09 12:02 | disposition home or self-care (01) | DRG 309 ==
LOC: EDBD 10:53 → EDSEX 10:53 → C.EDC 10:54 → C.2T 18:34 → EDBEDREQ 18:39 → ENRESERV 18:41
PROVIDERS: ADMIT Hospitalist; ATTEND Internal Medicine
DX: I48.92 Unspecified atrial flutter (principal); J44.1 Chronic obstructive pulmonary disease with (acute) exacerbation; E66.2 Morbid (severe) obesity with alveolar hypoventilation; I48.1 Persistent atrial fibrillation; G47.33 Obstructive sleep apnea (adult) (pediatric); Z87.891 Personal history of nicotine dependence; I89.0 Lymphedema, not elsewhere classified; E87.70 Fluid overload, unspecified

== ENCOUNTER → 2016-10-06 | Day surgery (SDC) | payer BC, OTHER ==
[2016-10-03 09:06] VITALS: BMI 75.0
[~2016-10-06] VITALS: Ht 172.7 cm; Wt 223.6 kg
[~2016-10-06] MED LIST: ALBU18002 INH; ALBU1AER9 INH; CRD200 PO; GLUCTAB18 PO; IBUP-1050 PO; LPR100 PO; LSX/80 PO; METR-163 PO; NAPR1TAB9 PO; POTA-335 PO; POTA10CA28 PO; PRD75 PO; PRLSR20 PO; SPRIN INH; SYMIN160 INH; TIOTCAP INH
[2016-10-06 10:11] VITALS: Ht 172.7 cm; Wt 223.6 kg
[2016-10-06 10:33] VITALS: BP 195/115; PULSE 134; O2SAT 92
--- NOTE | 2016-10-09 06:44 | EDITING REQUIRED CODING QUERY ---
CANCELLED PROCEDURE Please provide a diagnosis below for the reason the colonoscopy was cancelled on 10/06/16: REASON FOR CANCELLATION: Thank you for your assistance, Ambreen Driscoll - Wax Molder
== END | disposition home or self-care (01) ==
LOC: C.GI 09:52
PROVIDERS: ATTEND Internal Medicine
DX: R19.7 Diarrhea, unspecified (principal); Z53.9 Procedure and treatment not carried out, unspecified reason

== ENCOUNTER → 2016-11-15 | Day surgery (SDC) | payer BC ==
[~2016-11-15] VITALS: Ht 172.7 cm; Wt 218.0 kg
[~2016-11-15] MED LIST changes: +ALBU18002 INH; -ALBU1AER9 INH; +CRD200 PO; +KETAMINE HCL INJ 50 MG/ML 10 ML VIAL ONE; +LPR100 PO; -METR-163 PO; +MIDAZOLAM HCL 1 MG/ML 2ML VIAL ONE; -POTA-335 PO; +POTA10CA28 PO; +PRD75 PO; +SPRIN INH; -TIOTCAP INH
[2016-11-15 06:53] VITALS: BMI 73.0
[2016-11-15 07:03] VITALS: BP 161/114; PULSE 85; TEMP 36.5; O2SAT 98; Ht 172.7 cm; Wt 218.0 kg
--- NOTE | 2016-11-15 07:04 | History & Physical Bridge Note ---
H&P Re-Evaluation Bridge Note: I have examined the patient, reviewed the History & Physical and in the interval since the performance of the History & Physical I have noted the following changes of clinical significance: No changes noted. Patient remains in AF. HR 85, 164/ 84.
[2016-11-15 07:14] VITALS: BP 176/112; PULSE 87; O2SAT 96
[2016-11-15 07:20] VITALS: BP 159/108; PULSE 87; O2SAT 96
[2016-11-15 07:21] VITALS: BP 159/108; PULSE 87; O2SAT 96
[2016-11-15 07:25] VITALS: BP 155/108; PULSE 87; O2SAT 96
--- NOTE | 2016-11-15 07:28 | Cardiology Procedure Brief Nt ---
Preliminary Cardiology Note Procedure Date Nov 15, 2016. Pre-Procedure Diagnosis aftrial fibrillation, atrial flutter Post-Procedure Diagnosis unchanged Procedure(s) Performed synchronized direct current cardioversion Dinner Cook Jim Santiago DO Almond Blancher Operator(s) Not applicable Estimated Blood Loss not applicable Preliminary Findings After informed consent was obtained and a time out was performed, synchronized direct current cardioversion was attempted. The patient received 3 countershocks of 360 J, that were unsuccessful in converting the patient to sinus rhythm. Vital signs remained stable. Anesthesia provided by Dr Boateng with Versed 2 mg IV, Propofol 25 mg IV , and Ketamine 20 mg IV. Recommendations Continue current medications. Keep outpatient follow up. Specimens not applicable Complication(s) None Disposition Recovery in cardiac chemical laboratory scientist recover suite, discharge to home
--- NOTE | 2016-11-15 07:31 | Procedure Note ---
Procedure Note Procedure Date Nov 15, 2016. Procedure Description Procedure Name: Direct current cardioversion Procedure time out: side/site verified, patient ID confirmed, correct procedure Consent obtained: written Time of procedure: 07:15 Performed by: attending Indications: therapeutic Contraindications: none Description: Pre-Procedure Diagnosis atrial fibrillation, atrial flutter Post-Procedure Diagnosis unchanged Procedure(s) Performed synchronized direct current cardioversion (unsuccessful) Tool Worker Jim Santiago DO Wire Bound Box Machine Operator(s) Not applicable Estimated Blood Loss not applicable Preliminary Findings After informed consent was obtained and a time out was performed, synchronized direct current cardioversion was attempted. The patient received 3 countershocks of 360 J, that were unsuccessful in converting the patient to sinus rhythm. Vital signs remained stable. Anesthesia provided by Dr Boateng with Versed 2 mg IV, Propofol 25 mg IV , and Ketamine 20 mg IV. Recommendations Continue current medications. Keep outpatient follow up. 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
--- NOTE | 2016-11-15 07:34 | Anesthesiology Progress Note ---
Anesthesia Post Op Note Date & Time Nov 15, 2016 at 07:34 Vital Signs Pain Intensity: 0 Vital Signs Past 12 Hours Date Time Temp Pulse Resp B/P (MAP) Pulse Ox O2 Delivery O2 Flow Rate FiO2 11/15/16 07:26 85 16 155/108 (124) 98 Nasal Cannula 2.5 11/15/16 07:25 87 16 155/108 96 Mask 10 11/15/16 07:21 87 16 159/108 96 Mask 10 11/15/16 07:20 87 16 159/108 96 Mask 10 11/15/16 07:14 87 16 176/112 96 Mask 10 11/15/16 07:03 36.5 85 16 161/114 98 Mask 3 Notes Mental Status: alert / awake / arousable, participated in evaluation Pt Amnestic to Procedure: Yes Nausea / Vomiting: adequately controlled Pain: adequately controlled Airway Patency, RR, SpO2: stable & adequate BP & HR: stable & adequate Hydration State: stable & adequate Anesthetic Complications: no major complications apparent
--- NOTE | 2016-11-15 07:34 | Discharge Instructions ---
Discharge Instructions Procedure Procedure Date: Nov 15, 2016. Reason for Visit: atrial fibrillation, atrial flutter, cardioversion Discharge Discharge Date: Nov 15, 2016. Discharge Diagnosis: Atrial fibrillation Last Recorded Wt (Kilograms): 218 Anesthesia Post Anesthesia Instructions: If you have had General Anesthesia or IV Sedation: * Do not drive today. * Resume driving when surgeon permits. * Do not make important decisions or sign legal documents today. * Call surgeon for: 1. Temperature elevations greater than 101 degrees F. 2. Uncontrollable pain. 3. Excessive bleeding. 4. Persistent nausea and vomiting. 5. Medication intolerance (nausea, vomiting or rash). * For nausea and vomiting use only clear liquids such as: tea, soda, bouillon until nausea subsides, then gradually increase diet as tolerated. * If you have any concerns or questions, call your surgeon's office. If physician is unavailable and it is an emergency, call 911 or go to the nearest emergency room. Instructions Activity Recommendations: limitations as noted below Recommended Home Diet: resume previous diet Allergies: Coded Allergies: No Known Allergies (Unverified , 10/06/16) Provider Instructions ACTIVITY RECOMMENDATIONS: Resume activities as tolerated with no limitations unless specified. _x_ No lifting over __10 pounds for 24 hours. _x_ Do not engage in vigorous exercise, sexual activity, or sports for 24 hours. _x_ Do not drive or operate any motorized equipment for 24 hours. x__ You may return to work/school tomorrow. SPECIAL CARE: If you experience coughing up or vomiting of blood, contact __Dr Santiago ___ Follow Up Ann Mantilla Recommendations: Call your doctor if: * Temperature above 101 degrees * Pain not relieved by pain medicine ordered * There is increased drainage or redness from any incision * You have any unanswered questions or concerns. Your Doctors Instructions noted above were prepared by provider Jamil Santiago. Patient Signature Section: Patient Instructions Signature Page Darrius Cason Patient (or Guardian) Signature/Date: I have read and understand the instructions given to me by my caregivers. Caregiver/RN/Doctor Signature/Date: The above-named patient and/or guardian has received patient instructions on this date. + Original Patient Signature Page (only) stays with chart. Please make copy for patient.
[2016-11-15 08:30] VITALS: BP 156/100; PULSE 90; O2SAT 96
== END | disposition home or self-care (01) ==
LOC: C.CATH 06:01
PROVIDERS: ATTEND Specialist
DX: I48.1 Persistent atrial fibrillation (principal); I48.3 Typical atrial flutter; E66.01 Morbid (severe) obesity due to excess calories; I87.2 Venous insufficiency (chronic) (peripheral); G47.33 Obstructive sleep apnea (adult) (pediatric); K21.9 Gastro-esophageal reflux disease without esophagitis; I10 Essential (primary) hypertension; F32.9 Major depressive disorder, single episode, unspecified; Z87.891 Personal history of nicotine dependence; Z82.49 Family history of ischemic heart disease and other diseases of the circulatory system; Z79.01 Long term (current) use of anticoagulants; Z79.899 Other long term (current) drug therapy